=== PATIENT | female | born 1955 | race Caucasian/White ===

== ENCOUNTER 2018-08-07 07:25 | Day surgery (SDC) | payer BC ==
[2018-08-07] MEDS ORDERED: LIDOCAINE 2% (MDV) 20 ML INJ (09:24)
[2018-08-07] MEDS ORDERED: MEPERIDINE 25 MG INJ IV (09:30)
[2018-08-07] MEDS ORDERED: HYDROmorphONE 1 MG/5 ML IV SYRINGE IV (09:30)
[2018-08-07] MEDS ORDERED: ALBUTEROL 0.083% (NEB) 2.5 MG/3 ML AMP HHN (09:30)
[2018-08-07] MEDS ORDERED: METOCLOPRAMIDE 10 MG INJ IV (09:30)
[2018-08-07] MEDS ORDERED: DIPHENHYDRAMINE 50 MG INJ IV (09:30)
[2018-08-07] MEDS ORDERED: FENTAnyl 50 MCG/ML VIAL IV ×2 (09:30)
[2018-08-07] MEDS ORDERED: CEFAZOLIN 1 GM INJ (09:37)
[2018-08-07] MEDS ORDERED: PROPOFOL 20 ML (09:37)
[2018-08-07] MEDS ORDERED: MIDAZOLAM 1 MG/ML 2 ML INJ (09:38)
[2018-08-07] MEDS ORDERED: FENTAnyl 50 MCG/ML VIAL (09:40)
[2018-08-07] MEDS ORDERED: LIDOCAINE 1% (MPF) 10 ML INJ ×2 (09:45→09:56)
[2018-08-07] MEDS: POVIDONE IODINE 10% 28.4 GM OINT (10:00)
[2018-08-07] MEDS: LIDOCAINE 1% (MPF) 10 ML INJ (10:00)
[2018-08-07] MEDS: ONDANSETRON 4 MG INJ IV (10:42)
[2018-08-07] MEDS: HYDROmorphONE 1 MG/5 ML IV SYRINGE IV (10:43)
== END 2018-08-07 11:55 | disposition home or self-care (01) ==
LOC: SDS 07:25
DX: L60.0 Ingrowing nail (principal); L03.031 Cellulitis of right toe; E78.5 Hyperlipidemia, unspecified; E66.01 Morbid (severe) obesity due to excess calories; Z68.37 Body mass index [BMI] 37.0-37.9, adult
CPT/HCPCS: 11750

== ENCOUNTER 2019-05-11 10:36 | Day surgery (SDC) | payer OTHER ==
[2019-05-11] MEDS ORDERED: LIDOCAINE 1% (MPF) 30 ML INJ (11:31)
[2019-05-11] MEDS ORDERED: LACTATED RINGER'S 1,000 ML IV (12:00)
[2019-05-11] MEDS ORDERED: METOCLOPRAMIDE 10 MG INJ ×2 (12:30→12:38)
[2019-05-11] MEDS ORDERED: SEVOFLURANE 15 MIN (12:30)
[2019-05-11] MEDS ORDERED: PROPOFOL 20 ML (12:38)
[2019-05-11] MEDS ORDERED: MEPERIDINE 100 MG INJ (12:38)
[2019-05-11] MEDS ORDERED: ONDANSETRON 4 MG INJ (12:38)
[2019-05-11] MEDS ORDERED: LIDOCAINE 2% (SDV) 5 ML INJ (12:38)
[2019-05-11] MEDS ORDERED: EPHEDrine 25 MG/5 ML SYG (13:21)
[2019-05-11] MEDS ORDERED: CEFAZOLIN 1 GM INJ (13:21)
[2019-05-11] MEDS: BUPIVACAINE 0.5% (SDV) 30 ML INJ (13:21)
[2019-05-11] MEDS: POVIDONE IODINE 10% 28.4 GM OINT (13:22)
[2019-05-11] MEDS ORDERED: NALOXONE (0.4 MG/ML) INJ (13:28)
[2019-05-11] MEDS ORDERED: EPHEDrine 25 MG/5 ML SYG IV (13:30)
[2019-05-11] MEDS ORDERED: LABETALOL HCL 20MG INJ IV (13:30)
[2019-05-11] MEDS ORDERED: DIPHENHYDRAMINE 50 MG INJ IV (13:30)
[2019-05-11] MEDS ORDERED: OXYCODONE/ACETAMINOPHEN (5/325) TAB PO ×2 (13:30)
[2019-05-11] MEDS ORDERED: MIDAZOLAM 1 MG/ML 2 ML INJ IV (13:30)
[2019-05-11] MEDS ORDERED: MEPERIDINE 25 MG INJ IV (13:30)
[2019-05-11] MEDS ORDERED: ONDANSETRON 4 MG INJ IV (13:30)
[2019-05-11] MEDS ORDERED: METOCLOPRAMIDE 10 MG INJ IV (13:30)
[2019-05-11] MEDS ORDERED: hydrALAzine 20 MG INJ IV (13:30)
[2019-05-11] MEDS ORDERED: FENTAnyl 50 MCG/ML VIAL IV ×3 (13:30)
== END 2019-05-11 15:40 | disposition home or self-care (01) ==
LOC: SDS 10:36
DX: L60.0 Ingrowing nail (principal); I10 Essential (primary) hypertension; E78.5 Hyperlipidemia, unspecified; I69.354 Hemiplegia and hemiparesis following cerebral infarction affecting left non-dominant side
CPT/HCPCS: 11750; 88304